=== PATIENT | female | born 1960 | race Caucasian/White ===

== ENCOUNTER 2023-01-10 00:42 | Emergency (ER) | payer MEDICAID ==
[~2023-01-10] VITALS: Ht 162.6 cm; Wt 52.0 kg
[2023-01-10] MEDS ORDERED: ACETAMINOPHEN 325MG TABLET PO ONE (01:15)
[2023-01-10] MEDS ORDERED: KETOROLAC 30MG/ML VIAL IM ONE (01:15)
[2023-01-10] MEDS ORDERED: IBUP-2028 MT (03:20)
[2023-01-10 03:30] VITALS: BP 108/79
== END 2023-01-10 07:47 | disposition home or self-care (01) ==
LOC: ER 00:42
DX: M25.551 Pain in right hip (principal); W18.30XA Fall on same level, unspecified, initial encounter; Y93.89 Activity, other specified; Y92.89 Other specified places as the place of occurrence of the external cause; Y99.8 Other external cause status
CPT/HCPCS: 73502; 73552; 99284; J1885